=== PATIENT | female | born 1935 | race Caucasian/White ===

== ENCOUNTER 2016-11-29 07:15 | Day surgery (SDC) | payer MEDICARE ==
[~2016-11-29] VITALS: Ht 154.9 cm; Wt 70.0 kg
[~2016-11-29 07:15] MED LIST: ASPI-973 PO; CALC-78 PO; CHOL500011 PO; COLE1TAB2 PO; FERR-83 PO; GLIM2TAB2 PO; INSU100V7 SUBQ; METF-495 PO; OMEP20CA11 PO; ONDA-54 PO; PRD5T PO; RANI150C4 PO; Sodium Chloride LOK Flush 10 mL Syringe IV PRN; fentaNYL-PF 50 mCg/mL 2 mL Inj IVPUSH PRN
[2016-11-29 07:41] VITALS: BP 139/66; PULSE 72; RESP 20; O2SAT 96
[2016-11-29] MEDS: 0.9% Sodium Chloride 1,000 ML IV SCH ×2 (07:54→08:12)
[2016-11-29 08:21] VITALS: BP 136/73; PULSE 83; RESP 16; O2SAT 96
[2016-11-29 08:30] VITALS: BP 124/75; PULSE 83; RESP 16; O2SAT 95
[2016-11-29 08:40] VITALS: BP 134/72; PULSE 76; RESP 14; O2SAT 96
--- NOTE | 2016-11-29 10:28 | ENDO ---
[address] [address] ENDOSCOPY PROCEDURE PATIENT: TRAMAINE HUNTER : 1935 MR#: [id number] ADMIT: 11/29/2016 JOB ID: [id number] TYPE OF PROCEDURE: Esophagogastroduodenoscopy. INDICATION: Episodic vomiting. Patient's ASA classification is two. Mallampati score is two. MEDICATIONS: 1. Versed 3 mg. 2. Fentanyl 50 mcg. INSTRUMENT USED: [id number] PROCEDURE DETAILS: After informed consent was obtained, the patient was brought into the GI suite, where she was placed on oxygen via nasal cannula and monitored with continuous pulse oximeter, telemetry, and blood pressure monitoring. A time-out was performed. Then, she was placed in a left lateral decubitus position and medications were administered for sedation. A bite block was placed. The standard EGD scope was inserted through the bite block and advanced under direct visualization to the 2nd portion of the duodenum without difficulty. FINDINGS: 1. Normal appearing duodenal bulb, first and second portion. Bile-stained mucosa was noted throughout the exam portion of the duodenum. 2. Normal appearing pylorus and antrum. In the body of the stomach there were several diminutive polyps. These were biopsied randomly. 3. Retroflex views in the gastric body revealed a normal-appearing cardia and fundus. 4. The GE junction was at 36 cm and appeared regular. 5. Normal appearing esophagus. IMPRESSION: Multiple gastric body polyps, appearance suggestive of fundic gland polyps. Otherwise normal exam to second portion of the duodenum. No findings to explain patient's vomiting. RECOMMENDATIONS: Consider gastric emptying study and abdominal ultrasound to further evaluate. COMPLICATIONS: None. ESTIMATED BLOOD LOSS: Less than 5 mL.
--- NOTE | 2016-11-30 15:17 | PATH ---
SURGICAL PATHOLOGY Attending Physician:Nathan Franco CASE STATUS: Signed Out PATIENT NAME: TRMAAINE HUNTER PID: [id number] : 1935 DATE COLLECTED:11/29/2016 16:33 SPECIMEN: 1: Gastric, Biopsy 2: Stomach, Polyp, Biopsy CLINICAL HISTORY: N/V, GASTRIC POLYPS 1). GASTRIC BIOPSY 2). GASTRIC POLYPS FINAL DIAGNOSIS: 1. Gastric Biopsy: Superficial portions of gastric antral and body-type mucosa with mild chronic gastritis. No definite H. pylori organisms identified by H&E stain. Negative for intestinal metaplasia, dysplasia, and malignancy. Immunohistochemistry studies pending; results will be reported as an addendum. 2. Gastric Polyps, Biopsies: Gastric body-type mucosa with scattered, mildly dilated glands, consistent with features of fundic gland polyp. Negative for intestinal metaplasia, dysplasia, and malignancy. ICD10: K31.7 GROSS DESCRIPTION: The specimen is received in two formalin filled containers labeled with the patient's name. 1). The specimen is labeled "gastric" and consists of 3 portions of tissue which aggregate to zero 3 x 0.3 x 0.2 CM. The specimen is entirely submitted in cassette 1A. 2). The specimen is labeled "gastric polyps" and consists of 2 portions of tissue which aggregate to 0.2 x 0.2 x 0.2 CM. The specimen is entirely submitted in cassette 2A. 11/29/2016DC ICD-9 CODES: CPT CODES: 1: 73308, 75894 2: 29520 PROCEDURE/ADDENDA: Addendum SPI Addendum Diagnosis 1. Gastric Biopsy: Negative for H. pylori organisms by immunohistochemistry studies. Addendum Comment {Not Entered} Electronically Signed Out Nessa Levy MD Electronically Signed Out Nessa Levy MD [facility] Pathology [facility], [place] [address] Technical component performed at [facility], [facility] [address], [address]
== END 2016-11-29 23:59 | disposition home or self-care (01) ==
LOC: END 07:15
PROVIDERS: ATTEND Internal Medicine Gastroenterology
DX: K29.50 Unspecified chronic gastritis without bleeding (principal); K31.7 Polyp of stomach and duodenum; E11.40 Type 2 diabetes mellitus with diabetic neuropathy, unspecified; K21.9 Gastro-esophageal reflux disease without esophagitis; N18.1 Chronic kidney disease, stage 1; I25.2 Old myocardial infarction; D50.9 Iron deficiency anemia, unspecified; E78.5 Hyperlipidemia, unspecified; Z79.84 Long term (current) use of oral hypoglycemic drugs; Z79.82 Long term (current) use of aspirin
CPT/HCPCS: 43239; G0500; J2250; J3010; J7030